=== PATIENT | female | born 1930 | race Caucasian/White ===

== ENCOUNTER 2020-01-09 14:21 | Emergency (ER) | payer MEDICARE ==
[~2020-01-09] VITALS: Ht 147.3 cm; Wt 68.2 kg
[~2020-01-09 14:21] MED LIST: METO-467 PO
[2020-01-09 15:01] LABS: BASOPHILS # (AUTO) 0.1 X10'3 (0-0.2); EOSINOPHILS # (AUTO) 0.3 X10'3 (0-0.9); HEMATOCRIT 33.2 % (35.0-45.0); HEMOGLOBIN 11.5 g/dl (12.0-16.0); LYMPHOCYTES # (AUTO) 3.1 X10'3 (1.1-4.8); LYMPHOCYTES % (AUTO) 36.9 % (21-51); MEAN CORPUSCULAR HEMOGLOBIN 32.6 PG (27.0-31.0); MEAN CORPUSCULAR HGB CONC 34.7 g/dL (33.0-36.5); MEAN CORPUSCULAR VOLUME 93.7 FL (78-98); MEAN PLATELET VOLUME 8.2 FL (7.4-10.4); MONOCYTES % (AUTO) 11.4 % (2-12); NEUTROPHILS # (AUTO) 3.9 X10'3 (1.8-7.7); NEUTROPHILS % (AUTO) 46.7 % (42-75); PLATELET COUNT 287 X10'3 (140-440); RED BLOOD COUNT 3.54 X10'6 (4.20-5.60); RED CELL DISTRIBUTION WIDTH 13.1 % (11.5-14.5); WHITE BLOOD COUNT 8.3 X10'3 (4.5-11.0)
[2020-01-09 15:12] LABS: PARTIAL THROMBOPLASTIN TIME 24 SECONDS (22-32)
[2020-01-09 15:15] LABS: ALANINE AMINOTRANSFERASE 15 U/L (12-78); ALBUMIN 3.5 G/DL (3.4-5.0); ALKALINE PHOSPHATASE 46 IU/L (46-116); ANION GAP 6 (8-16); ASPARTATE AMINO TRANSFERASE 16 U/L (10-37); BILIRUBIN,TOTAL 0.1 MG/DL (0.1-1.0); BLOOD UREA NITROGEN 13 MG/DL (7-18); BUN/CREATININE RATIO 15.7 (6.6-38.0); CALCIUM 8.6 MG/DL (8.5-10.1); CHLORIDE 101 MMOL/L (99-107); CREATININE 0.83 MG/DL (0.40-0.90); GLUCOSE 94 MG/DL (70-104); POTASSIUM 4.2 MMOL/L (3.5-5.1); SODIUM 135 MMOL/L (135-145); TOTAL CARBON DIOXIDE 28.5 MMOL/L (24-32); TOTAL PROTEIN 7.1 G/DL (6.4-8.2); eGFR 65 ML/MIN
[2020-01-09 15:18] LABS: TROPONIN I < 0.04 NG/ML (0.0-0.05)
[2020-01-09] MEDS ORDERED: LEVO100T9 PO (15:26)
[2020-01-09] MEDS ORDERED: LISI-600 PO (15:26)
[2020-01-09] MEDS ORDERED: OMEP-50 PO (15:26)
[2020-01-09] MEDS ORDERED: ASPI-611 PO (15:26)
[2020-01-09] MEDS ORDERED: METO50TA16 PO (15:26)
[2020-01-09] MEDS ORDERED: PRAV20TA4 PO (15:26)
[2020-01-09] MEDS ORDERED: HYDR-3964 PO (15:28)
--- NOTE | 2020-01-09 16:18 | NUR ---
MRI SCREENING FORM COMPLETED AND FAXED. 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
[2020-01-09 22:06] VITALS: BP 135/76
== END 2020-01-09 22:09 | disposition home or self-care (01) ==
LOC: ER 14:22
DX: G45.9 Transient cerebral ischemic attack, unspecified (principal); R51 Headache; R42 Dizziness and giddiness; I10 Essential (primary) hypertension; Z88.2 Allergy status to sulfonamides; Z88.8 Allergy status to other drugs, medicaments and biological substances; Z79.82 Long term (current) use of aspirin; Z79.899 Other long term (current) drug therapy
CPT/HCPCS: 36415; 70450; 70551; 71045; 80053; 82948; 84443; 84484; 85025; 85610; 85730; 93005; 93880; 99285